=== PATIENT | male | born 2000 | race Caucasian/White ===

== ENCOUNTER 2019-02-08 09:41 | Emergency (ER) | payer OTHER ==
[~2019-02-08] VITALS: Ht 185.4 cm; Wt 65.8 kg
[2019-02-08 09:44] VITALS: BP 114/65
== END 2019-02-08 10:27 | disposition home or self-care (01) ==
LOC: ER 09:41
DX: S61.213A Laceration without foreign body of left middle finger without damage to nail, initial encounter (principal); S61.215A Laceration without foreign body of left ring finger without damage to nail, initial encounter; W23.0XXA Caught, crushed, jammed, or pinched between moving objects, initial encounter; Y93.89 Activity, other specified; Y92.89 Other specified places as the place of occurrence of the external cause; Y99.8 Other external cause status